=== PATIENT | female | born 1985 | race Caucasian/White ===

== ENCOUNTER 2017-09-14 18:18 | Emergency (ER) | payer OTHER ==
[~2017-09-14] VITALS: Ht 160 cm; Wt 78.5 kg
[2017-09-14 18:25] VITALS: BP 130/57; PULSE 88; RESP 16; TEMP 98.6; O2SAT 100
--- NOTE | 2017-09-14 18:32 | PD ---
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 Patient does not have a primary care and since it is not getting better she decided to come to the emergency room. No history of severe pain. Patient is sexually active but the last time she had sex was more than a month ago. She does have unprotected sex. No previous history of STD. She says the discharge does have a funny odor to it. [facility] Past Medical History Narrative Medical List of her past medical, surgical, social and family history is reviewed from the nursing note. ?: Not LMP: 08/25/17 Social History Tobacco Use: Yes Allergies-Medications (Allergen,Severity, Reaction): Coded Allergies: Sulfa (Sulfonamide Antibiotics) (Verified Allergy, Intermediate, hives, 05/22) Comments List of her allergies reviewed from the nursing note. Reported Meds & Prescriptions Reported Meds & Active Scripts Active Flagyl (Metronidazole) 250 Mg Tab 250 Mg PO TID 7 Days Narrative Medication List of her home medications reviewed from the nursing note Review of Systems Except as stated in HPI: all other systems reviewed are Neg Genitourinary: Positive: Discharge Physical Exam Narrative GENERAL: Awake, alert, in no obvious distress SKIN: Focused skin assessment warm/dry. HEAD: Atraumatic. Normocephalic. EYES: Pupils equal and round. No scleral icterus. No injection or drainage. ENT: No nasal bleeding or discharge. Mucous membranes pink and moist. NECK: Trachea midline. No JVD. CARDIOVASCULAR: Regular rate and rhythm. No murmur appreciated. RESPIRATORY: No accessory muscle use. Clear to auscultation. Breath sounds equal bilaterally. GASTROINTESTINAL: Abdomen soft, non-tender, nondistended. Hepatic and splenic margins not palpable. : External inspection is within normal limits. Speculum exam shows yellowish discharge that has a fishy odor. No CMT or adnexal tenderness. MUSCULOSKELETAL: No obvious deformities. No clubbing. No cyanosis. No edema. NEUROLOGICAL: Awake and alert. No obvious cranial nerve deficits. Motor grossly within normal limits. Normal speech. PSYCHIATRIC: Appropriate mood and affect; insight and judgment normal. Data Data Last Documented VS Vital Signs Date Time Temp Pulse Resp B/P (MAP) Pulse Ox O2 Delivery O2 Flow Rate FiO2 09/14/17 20:19 81 16 108/67 (81) 99 09/14/17 19:00 Room Air 09/14/17 18:25 98.6 Orders Orders Gc And Chlamydia Pcr (09/14/17 18:39) Wet Prep Profile (09/14/17 18:39) Ua Includes Microscopic (09/14/17 18:39) Ed Urine Pregnancytest Poc (09/14/17 18:39) Ed Discharge Order (09/14/17 20:12) Labs Laboratory Tests Test 09/14/17 19:17 09/14/17 19:40 Urine Color YELLOW Urine Turbidity SL CLOUDY Urine pH 5.5 Urine Specific [place] GREATER/EQUAL 1.030 Urine Protein NEG mg/dL Urine Glucose (UA) NEG mg/dL Urine Ketones NEG mg/dL Urine Occult Blood TRACE Urine Nitrite NEG Urine Bilirubin NEG Urine Urobilinogen 0.2 MG/DL Urine Leukocyte Esterase NEG Urine RBC 0-2 /hpf Urine WBC 3-5 /hpf Urine Squamous Epithelial Cells > 8 /hpf Urine Amorphous Sediment FEW Urine Bacteria FEW /hpf Clue Cells (Wet Prep) PRESENT Vaginal Trichomonas (Wet Prep) NONE SEEN Vaginal Yeast (Wet Prep) NONE SEEN Chlamydia trachomatis DNA (PCR) NOT DETECTED Neisseria gonorrhoeae DNA (PCR) NOT DETECTED MDM Medical Decision Making Medical Screen Exam Complete: Yes Emergency Medical Condition: Yes Medical Record Reviewed: Yes Differential Diagnosis Vaginitis, PID, STD Narrative Course 8:21 PM wet prep was positive for clue cells. I have discharged her home with prescription of Flagyl. She has been given instructions. Procedures EKG Prior to Arrival: No Diagnosis Primary Impression: Bacterial vaginosis Additional Impression: Vaginitis Qualified Codes: N76.0 - Acute vaginitis Additional Instructions: Take the medication as per the prescription direction. If your GC and Chlamydia is positive we will will be called for treatment. At which point your partner will need to be treated as well. Med/Other Pt SpecificInfo: Prescription(s) given Scripts Metronidazole (Flagyl) 250 Mg Tab 250 MG PO TID for Infection for 7 Days, TAB 0 Refills Prov: Dano Aguila MD 09/14/17 Disposition: 01 DISCHARGE HOME Condition: Stable Dano Aguila MD Sep 14, 2017 18:32
[2017-09-14 19:00] VITALS: BP 115/73; PULSE 81; RESP 16; O2SAT 97
[2017-09-14 19:31] LABS: BILIRUBIN, URINE NEG (NEG); BLOOD, URINE TRACE (NEG); GLUCOSE,URINE NEG (NEG); KETONE, URINE NEG (NEG); NITRITE,URINE NEG (NEG); PH, URINE 5.5 (5.0-8.5); URINE COLOR YELLOW (YELLW/STRAW); URINE LEUKOCYTE ESTERASE NEG (NEG)
[2017-09-14 19:36] LABS: AMORPHOUS SEDIMENT, URINE FEW; BACTERIA, URINE FEW /hpf; RBC, URINE 0-2 /hpf (0-3); SQUAMOUS EPITHELIAL CELL URINE > 8 /hpf (0-5)
[2017-09-14] MEDS ORDERED: METR250 PO (20:14)
[2017-09-14 20:19] VITALS: BP 108/67
== END 2017-09-14 20:21 | disposition home or self-care (01) ==
LOC: PHED 18:18
DX: N76.0 Acute vaginitis (principal); Z72.0 Tobacco use
CPT/HCPCS: 81001; 84703; 87210; 87491; 87591; 99283

== ENCOUNTER 2017-09-25 11:30 | Emergency (ER) | payer OTHER ==
[~2017-09-25] VITALS: Ht 160 cm; Wt 79.5 kg
[~2017-09-25 11:30] MED LIST: METR250 PO
[2017-09-25 11:32] VITALS: BP 120/71; PULSE 87; RESP 16; TEMP 97.9; O2SAT 98
--- NOTE | 2017-09-25 11:52 | PD ---
HPI Chief Complaint: Musculoskeletal Complaint Time Seen by Provider: 11:41 Travel History International Travel<30 days: No Contact w/Intl Traveler<30days: No Traveled to known affect area: No History of Present Illness HPI 32-year-old female presents emergency department for evaluation of left lumbar pain and muscle spasms that have been persistent since Monday. Patient states that she believed that she moved wrong and exacerbated this pain. Patient states that she does have a history of muscle spasms and similar back pain however, she has not had this pain in over a year. She denies any other inciting events. Says the pain is worse with movement, decreases with standing. Patient states she has taken Aleve with some improvement but says that her pain will worsen if she does not get some relief with medication. Says her pain radiates from her left lower paraspinous region to her glutes. Says she has some numbness of the lower left paraspinous muscles however, denies any significant weakness, loss of bowel or bladder function, saddle anesthesia, fever, chills, IV drug use. 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 She currently does not have a primary care physician. Denies fever, chills, urinary symptoms. She has no other complaints today. PFSH Past Medical History Medical History: Denies Significant Hx Diminished Hearing: No Tetanus Vaccination: > 5 Years Influenza Vaccination: No ?: Not LMP: 09/25/17 Past Surgical History Abdominal Surgery: Yes (laparoscopy) Social History Alcohol Use: Yes (occasional ) Tobacco Use: Yes (1 pk) Substance Use: Yes (Marijuana occasional) Allergies-Medications (Allergen,Severity, Reaction): Coded Allergies: Sulfa (Sulfonamide Antibiotics) (Verified Allergy, Intermediate, hives, ) Reported Meds & Prescriptions Reported Meds & Active Scripts Active Ibuprofen 800 Mg Tab 800 Mg PO Q6HR PRN 5 Days Robaxin (Methocarbamol) 500 Mg Tab 500 Mg PO TID 5 Days Review of Systems Except as stated in HPI: all other systems reviewed are Neg Physical Exam Narrative GENERAL: Well-nourished, well-developed patient. SKIN: Focused skin assessment warm/dry. HEAD: Normocephalic. EYES: No scleral icterus. No injection or drainage. NECK: Supple, trachea midline. No JVD or lymphadenopathy. No midline tenderness CARDIOVASCULAR: Regular rate and rhythm without murmurs, gallops, or rubs. RESPIRATORY: Breath sounds equal bilaterally. No accessory muscle use. GASTROINTESTINAL: Abdomen soft, non-tender, nondistended. MUSCULOSKELETAL: No cyanosis, or edema. Mild tenderness palpation of the left lower paraspinous muscles and left glutes. Grade 5/5 lower extremities. Neurovascularly intact. BACK: No CVA tenderness. No rash. No point tenderness on palpation of the spine. Data Data Last Documented VS Vital Signs Date Time Temp Pulse Resp B/P (MAP) Pulse Ox O2 Delivery O2 Flow Rate FiO2 09/25/17 11:32 97.9 87 16 120/71 (87) 98 Orders Orders Ketorolac Inj (Toradol Inj) (09/25/17 12:00) Orphenadrine Inj (Norflex Inj) (09/25/17 12:00) Ed Discharge Order (09/25/17 11:57) [facility] Medical Decision Making Medical Screen Exam Complete: Yes Emergency Medical Condition: Yes Differential Diagnosis Lower lumbar muscle spasms, lumbago, sciatica Narrative Course 32-year-old female presents emergency department for evaluation of muscle spasms of the left lower back that has been present since Monday. She denies any inciting events however believes she may moved from resulting in this pain. Patient does have a history of similar pain. No red flag signs or symptoms Vital signs are stable. The exam findings consistent with muscle spasms the left lower lumbar paraspinous muscle. Patient received Toradol and Norflex in the emergency department today. Patient be discharged with Robaxin and ibuprofen for pain relief. She is advised to follow-up with primary care physician for further evaluation. Return for worsening persistent symptoms. Diagnosis Primary Impression: Muscle spasm of back Referrals: [facility] Departure Forms: Tests/Procedures, Work Release Enter return to work date: Sep 26, 2017 Additional Instructions: Perform light stretches of the lower back and legs, and alternate heat and ice packs. If you develop increased pain, weakness, fever, chills, or bowel or bladder issues, return to the ED for further treatment and evaluation. Follow up with your primary care physician in 2-3 days. Scripts Ibuprofen (Ibuprofen) 800 Mg Tab 800 MG PO Q6HR Y for PAIN for 5 Days, #40 TAB 0 Refills Prov: Eligio Vyas MD 09/25/17 Methocarbamol (Robaxin) 500 Mg Tab 500 MG PO TID for Muscle Spasm for 5 Days, TAB 0 Refills Prov: Eligio Vyas MD 09/25/17 Disposition: 01 DISCHARGE HOME Condition: Stable [place] Sep 25, 2017 11:52
[2017-09-25] MEDS ORDERED: KETOROLAC TROMETHAMINE 60 MG/2 ML (IM) VIAL IM ONE (12:00)
[2017-09-25] MEDS ORDERED: ORPHENADRINE INJ 60 MG/2 ML AMP IM ONE (12:00)
[2017-09-25] MEDS ORDERED: ROBA500T PO (12:05)
[2017-09-25] MEDS ORDERED: IBUP1TAB7 PO (12:05)
== END 2017-09-25 12:15 | disposition home or self-care (01) ==
LOC: PHEFT 11:30
DX: M62.830 Muscle spasm of back (principal); F17.200 Nicotine dependence, unspecified, uncomplicated; F12.90 Cannabis use, unspecified, uncomplicated; Z88.2 Allergy status to sulfonamides; Z79.899 Other long term (current) drug therapy
CPT/HCPCS: 96372; 99283; J1885; J2360